=== PATIENT | female | born 1950 | race Caucasian/White ===

== ENCOUNTER 2017-06-30 17:30 | Inpatient (IN) ==
[2017-06-30] MEDS ORDERED: HYDROmorphone 2 MG/1 ML VIAL ONE (17:43)
[2017-06-30] MEDS ORDERED: MIDAZOLAM 2 MG/2 ML VIAL ONE (17:44)
[2017-06-30] MEDS ORDERED: fentaNYL 100 MCG/2 ML VIAL ONE (17:45)
[2017-06-30] MEDS ORDERED: TIROFIBAN 5,000 MCG/100 ML PREMIX IV ONE (17:46)
[2017-06-30] MEDS ORDERED: ENOXAPARIN 60 MG/0.6 ML SYRINGE ONE (18:02)
[2017-06-30] MEDS ORDERED: MORPHINE 10 MG/1 ML VIAL ONE (18:04)
[2017-06-30] MEDS ORDERED: ONDANSETRON 4 MG/2 ML VIAL ONE (18:13)
[2017-06-30] MEDS ORDERED: ASPIRIN 325 MG TABLET ONE (18:13)
[2017-06-30] MEDS ORDERED: TIROFIBAN 5,000 MCG/100 ML PREMIX IV SCH (18:21)
[2017-06-30] MEDS ORDERED: TICAGRELOR 90 MG TABLET ONE (18:22)
[2017-06-30] MEDS ORDERED: fentaNYL 100 MCG/2 ML VIAL IV PRN (18:50)
[2017-06-30] MEDS ORDERED: MORPHINE 2 MG/1 ML SYRINGE IV PRN (18:50)
[2017-06-30] MEDS ORDERED: NITROGLYCERIN SL 0.4 MG TABLET SL PRN (18:50)
[2017-06-30] MEDS ORDERED: LIDOCAINE 1% 20 ML VIAL ONE (18:52)
[2017-06-30] MEDS ORDERED: HEPARIN/NACL 0.9% 2 UNITS/ML 2,000 ML IV ONE (18:52)
[2017-06-30] MEDS ORDERED: DEXTROSE 5% NACL 0.45% 1,000 ML IV SCH (19:00)
[2017-06-30] MEDS ORDERED: ONDANSETRON 4 MG/2 ML VIAL IV PRN (19:03)
[2017-06-30] MEDS ORDERED: LACTULOSE 20 GM/30 ML UDCUP PO PRN (19:03)
[2017-06-30] MEDS: TICAGRELOR 90 MG TABLET PO SCH (20:31)
[2017-06-30] MEDS: ATORVASTATIN 80 MG TABLET PO SCH (21:29)
[2017-06-30] MEDS: INSULIN REGULAR 100 UNIT/ML SUBCUT SCH (21:29)
[2017-06-30] MEDS: METOPROLOL TARTRATE 50 MG TABLET PO SCH (21:29)
[2017-07-01 04:06] LABS: Basophils % 0.1 % (0.0-0.8); Hemoglobin 12.3 GM/DL (12.0-16.0); Immature Granulocytes % 0.3 %; Immature Granulocytes Absolute 0.02 #; Lymphocytes # 0.4 10*3/uL (1.4-4.0); Mean Corpuscular HGB Conc 35.1 GM/DL (32-36); Mean Corpuscular Hemoglobin 30 PG (27-34); Mean Corpuscular Volume 85.2 FL (87-102); Mean Platelet Volume 10.3 FL (9.6-12.0); Monocytes # 0.3 10*3/uL (0.11-0.8); Monocytes % 3.8 % (1.7-12.7); Neutrophils # 6.1 10*3/uL (1.4-7.4); Neutrophils % 89.8 % (38.7-73.9); Platelet Count 295 T/CUMM (130-400); Red Blood Count 4.11 MC/CUMM (3.8-5.5); White Blood Count 6.8 T/CUMM (4-12)
[2017-07-01 04:49] LABS: Albumin 3.4 G/DL (3.4-5.0); Bilirubin,Total 0.8 MG/DL (0.2-1.0); CKMB % 8.6 %; Osmolality,Calculated 281.7 MOS/KG (273-304); Potassium 3.4 MMOL/L (3.5-5.1); Total Protein 5.8 G/DL (6.4-8.3)
[2017-07-01 04:52] LABS: Troponin I Only 69.2 NG/ML (0.00-0.045)
[2017-07-01] MEDS: INSULIN REGULAR 100 UNIT/ML SUBCUT SCH ×4 (08:07→22:23)
[2017-07-01] MEDS: ASPIRIN EC 81 MG TABLET PO SCH (08:09)
[2017-07-01] MEDS: PANTOPRAZOLE 40 MG TABLET PO SCH (08:09)
[2017-07-01] MEDS: METOPROLOL TARTRATE 50 MG TABLET PO SCH ×2 (08:09→21:27)
[2017-07-01] MEDS: TICAGRELOR 90 MG TABLET PO SCH ×2 (08:09→21:27)
[2017-07-01] MEDS: LOSARTAN 25 MG TABLET PO SCH (08:11)
[2017-07-01] MEDS: ATORVASTATIN 80 MG TABLET PO SCH (21:27)
[2017-07-02 05:15] LABS: Basophils % 0.4 % (0.0-0.8); Eosinophils # 0.1 10*3/uL (0.0-0.87); Eosinophils % 1.7 % (0.00-10.9); Hematocrit 34.2 VOL% (35.7-47.0); Hemoglobin 11.3 GM/DL (12.0-16.0); Immature Granulocytes % 0.4 %; Immature Granulocytes Absolute 0.02 #; Lymphocytes # 1.4 10*3/uL (1.4-4.0); Lymphocytes % 25.9 % (21.3-54.2); Mean Corpuscular Hemoglobin 29 PG (27-34); Mean Corpuscular Volume 88.6 FL (87-102); Mean Platelet Volume 10.6 FL (9.6-12.0); Monocytes # 0.5 10*3/uL (0.11-0.8); Monocytes % 8.8 % (1.7-12.7); Neutrophils # 3.4 10*3/uL (1.4-7.4); Neutrophils % 62.8 % (38.7-73.9); Platelet Count 260 T/CUMM (130-400); Red Blood Count 3.86 MC/CUMM (3.8-5.5); Red Cell Distribution Width 13.3 % (9.3-17.3); White Blood Count 5.4 T/CUMM (4-12)
[2017-07-02 06:00] LABS: Risk Ratio 3.04; VLDL CHOLESTEROL 16.2 MG/DL
[2017-07-02 07:03] LABS: Calcium 7.4 MG/DL (8.5-10.1); Osmolality,Calculated 287.8 MOS/KG (273-304); Potassium 3.3 MMOL/L (3.5-5.1)
[2017-07-02] MEDS ORDERED: MAGNESIUM SULF RIDER 4 GM in PREMIX 1 EACH IV PRN (07:45)
[2017-07-02] MEDS ORDERED: MAGNESIUM SULF RIDER 2 GM in PREMIX 1 EACH IV PRN (07:45)
[2017-07-02] MEDS: INSULIN REGULAR 100 UNIT/ML SUBCUT SCH ×4 (08:46→21:28)
[2017-07-02] MEDS: PANTOPRAZOLE 40 MG TABLET PO SCH (08:47)
[2017-07-02] MEDS: ASPIRIN EC 81 MG TABLET PO SCH (08:47)
[2017-07-02] MEDS: LOSARTAN 25 MG TABLET PO SCH (08:47)
[2017-07-02] MEDS: METOPROLOL TARTRATE 25 MG TABLET PO SCH ×2 (08:47→21:27)
[2017-07-02] MEDS: TICAGRELOR 90 MG TABLET PO SCH ×2 (08:47→21:27)
[2017-07-02] MEDS: POTASSIUM CHLORIDE 20 MEQ TABLET PO SCH (08:47)
[2017-07-02] MEDS: ATORVASTATIN 80 MG TABLET PO SCH (21:28)
[2017-07-03 05:36] LABS: Basophils % 0.3 % (0.0-0.8); Eosinophils # 0.2 10*3/uL (0.0-0.87); Eosinophils % 2.5 % (0.00-10.9); Hematocrit 32.1 VOL% (35.7-47.0); Hemoglobin 11.2 GM/DL (12.0-16.0); Immature Granulocytes % 0.5 %; Immature Granulocytes Absolute 0.03 #; Lymphocytes # 1.4 10*3/uL (1.4-4.0); Lymphocytes % 22.8 % (21.3-54.2); Mean Corpuscular HGB Conc 34.9 GM/DL (32-36); Mean Corpuscular Hemoglobin 30 PG (27-34); Mean Corpuscular Volume 86.8 FL (87-102); Mean Platelet Volume 10.7 FL (9.6-12.0); Monocytes # 0.5 10*3/uL (0.11-0.8); Monocytes % 8.6 % (1.7-12.7); Neutrophils # 3.9 10*3/uL (1.4-7.4); Neutrophils % 65.3 % (38.7-73.9); Platelet Count 247 T/CUMM (130-400); Red Cell Distribution Width 13.3 % (9.3-17.3); White Blood Count 5.9 T/CUMM (4-12)
[2017-07-03 06:05] LABS: Magnesium 1.7 MG/DL (1.8-2.4); Osmolality,Calculated 291.8 MOS/KG (273-304); Potassium 3.6 MMOL/L (3.5-5.1)
[2017-07-03 08:10] VITALS: BP 114/55
[2017-07-03] MEDS: TICAGRELOR 90 MG TABLET PO SCH (08:37)
[2017-07-03] MEDS: POTASSIUM CHLORIDE 20 MEQ TABLET PO SCH (08:37)
[2017-07-03] MEDS: METOPROLOL TARTRATE 25 MG TABLET PO SCH (08:37)
[2017-07-03] MEDS: LOSARTAN 25 MG TABLET PO SCH (08:38)
[2017-07-03] MEDS: PANTOPRAZOLE 40 MG TABLET PO SCH (08:38)
[2017-07-03] MEDS: INSULIN REGULAR 100 UNIT/ML SUBCUT SCH (08:38)
[2017-07-03] MEDS: ASPIRIN EC 81 MG TABLET PO SCH (08:38)
== END 2017-07-03 09:57 | disposition home or self-care (01) | DRG 247 ==
LOC: SUPCPDRO 17:56 → N.CC 17:56 → N.TELES 07-02 14:54
PROVIDERS: ADMIT Internal Medicine Interventional Cardiology; ATTEND Internal Medicine Interventional Cardiology
PROC: CLCCHCL (ICD-10-PCS; 2017-06-30 17:45)